=== PATIENT | male | born 1955 | race Two or more races ===

== ENCOUNTER 2023-08-28 10:32 | Emergency (ER) | payer OTHER, BC ==
[2023-08-28 10:37] VITALS: BP 106/74; PULSE 79; RESP 18; TEMP 98.4; BMI 26.6
[2023-08-28] MEDS ORDERED: LIDOCAINE 5% TOPICAL PATCH TP ONE (10:54)
[2023-08-28] MEDS ORDERED: LIDOCAINE 5% TOPICAL PATCH ONE (11:04)
[2023-08-28] MEDS ORDERED: LIDOCAINE PATCH REMOVAL MC ONE (22:00)
== END 2023-08-28 11:10 | disposition home or self-care (01) ==
LOC: FER 10:32
DX: M54.50 Low back pain, unspecified (principal)
CPT/HCPCS: 99283-25